=== PATIENT | female | born 1970 | race Hispanic/Latino ===

== ENCOUNTER 2018-04-13 15:15 | Emergency (ER) | payer OTHER ==
[2018-04-13] MEDS ORDERED: KETOROLAC TROMETHAMINE 60 MG/2 ML VIAL ONE (15:46)
== END 2018-04-13 16:11 | disposition home or self-care (01) ==
LOC: EDH 15:15
DX: M25.512 Pain in left shoulder (principal); Z88.0 Allergy status to penicillin; Z72.0 Tobacco use
CPT/HCPCS: 73030; 96372; 99283; J1885

== ENCOUNTER 2018-06-01 17:02 | Emergency (ER) | payer OTHER | END 2018-06-01 18:41 | disposition home or self-care (01) | LOC: EDH 17:02 | DX: S93.401A Sprain of unspecified ligament of right ankle, initial encounter (principal); Z88.0 Allergy status to penicillin; Z72.0 Tobacco use; Z98.890 Other specified postprocedural states; W18.39XA Other fall on same level, initial encounter; Y93.01 Activity, walking, marching and hiking; Y92.89 Other specified places as the place of occurrence of the external cause; Y99.8 Other external cause status | CPT/HCPCS: 73600 ==

== ENCOUNTER 2018-10-25 07:42 | Emergency (ER) | payer OTHER ==
[2018-10-25 08:18] LABS: BASOPHILS % (AUTO) 0.8 % (0.0-5.0); EOSINOPHILS % (AUTO) 5.2 % (0.0-8.0); HEMATOCRIT 43.3 % (36-48); LYMPHOCYTES % (AUTO) 28.6 % (21.0-51.0); MEAN CORPUSCULAR HEMOGLOBIN 31.3 pg (27.0-33.0); MEAN CORPUSCULAR VOLUME 92.1 fL (79-99); MONOCYTES % (AUTO) 7.6 % (3.0-13.0); NEUTROPHILS % (AUTO) 57.8 % (40.0-77.0); NUCLEATED RED BLOOD CELLS 0.1 % (0.0-0.19); PLATELET COUNT (AUTO) 180 K/uL (130-400); RED CELL DISTRIBUTION WIDTH 13.1 % (11.0-15.5); WHITE BLOOD COUNT (AUTO) 6.5 K/uL (4.8-10.8)
[2018-10-25 08:28] LABS: CREATININE 0.7 mg/dL (0.5-1.5); INR 0.96 (0.85-1.15); PARTIAL THROMBOPLASTIN TIME 30.6 SEC (26.3-35.5); POTASSIUM 3.6 mmol/L (3.5-5.1); PROTHROMBIN TIME 10.1 SEC (9.6-11.6)
[2018-10-25 08:33] LABS: ALBUMIN 3.7 g/dL (3.5-5.0); BILIRUBIN,TOTAL 0.2 mg/dL (0.2-1.0); TOTAL PROTEIN, SERUM 7.1 g/dL (6.0-8.3)
[2018-10-25] MEDS ORDERED: ASPIRIN 325 MG TABLET ONE (09:09)
[2018-10-25] MEDS ORDERED: IOHEXOL 350 MG/ML 100ML INFUS..BTL IV ONE (11:13)
== END 2018-10-25 13:29 | disposition short-term general hospital (02) ==
LOC: EDH 07:42
DX: G45.9 Transient cerebral ischemic attack, unspecified (principal); R07.2 Precordial pain; Z88.0 Allergy status to penicillin
CPT/HCPCS: 36415; 70450; 70496; 70498; 71045; 80053; 82550; 84484; 85025; 85610; 85730; 93005; 99285; Q9967